=== PATIENT | female | born 2000 | race American Indian/Alaskan Native ===

== ENCOUNTER 2020-12-05 22:06 | Emergency (ER) | payer OTHER, SELFPAY ==
[2020-12-05 22:34] VITALS: BP 98/57
[2020-12-05] MEDS ORDERED: ONDANSETRON 4 MG ODT TAB PO ONE (23:44)
[2020-12-05] MEDS ORDERED: ACETAMINOPHEN 500 MG TAB PO ONE (23:44)
--- NOTE | 2020-12-06 02:25 | XRay Report ---
CHEST 1 VIEW 12/06/2020 1:07 AM INDICATION / CLINICAL INFORMATION: cough. Covid positive COMPARISON: None available. FINDINGS: SUPPORT DEVICES: None. HEART / MEDIASTINUM: No significant abnormality. LUNGS / PLEURA: No significant pulmonary or pleural abnormality. No pneumothorax. ADDITIONAL FINDINGS: There is metallic piercing projecting over the mid chest IMPRESSION: 1. No acute findings. Signer Name: Steve Rothman MD Signed: 12/06/2020 2:20 AM Workstation Name: [id number]
--- NOTE | 2020-12-06 04:05 | Emergency Department Report ---
ED General Adult HPI - General Chief complaint: Pain General Stated complaint: POS COVID/CHEST/ARM PAIN Source: patient, EMS Mode of arrival: Ambulatory Limitations: No Limitations - History of Present Illness Initial comments: Patient is a nulliparous 20-year-old -[place] female with a history of asthma who presents to the ED with complaint of persistent diffuse body aches and pains, nausea and vomiting, persistent dry cough, lack of appetite and nausea and vomiting for the last 2 days. Patient states that she was initially evaluated and tested positive for COVID-19 viral infection. Patient states that she has been taking [id number] medications with no relief. Patient states that she was unable to keep anything down in the last 4 hours and decided come to the ED for further evaluation. Patient denies dizziness, syncope, fever, chills, abdominal pain, diarrhea, dysuria, urinary frequency and urgency, sore throat, chest pain, shortness of breath, nasal and sinus congestion or back pain. MD Complaint: Body aches, persistent dry cough, nausea and vomiting -: days(s) (2) Location: chest, abdomen Radiation: non-radiation Severity scale (0 -10): 8 Quality: aching, sharp Consistency: constant Improves with: none Worsens with: none Associated Symptoms: denies other symptoms, cough, headaches, loss of appetite, nausea/vomiting, weakness. denies: confusion, chest pain, diaphoresis, fever/chills, malaise, rash, seizure, shortness of breath, syncope, other Treatments Prior to Arrival: NSAID - Related Data Allergies Allergy/AdvReac Type Severity Reaction Status Date / Time No Known Allergies Allergy Unverified 12/05/20 22:33 ED Review of Systems ROS: Stated complaint: POS COVID/CHEST/ARM PAIN Other details as noted in HPI Constitutional: malaise, weakness. denies: chills, fever Eyes: denies: eye pain, eye discharge, vision change ENT: denies: ear pain, throat pain, congestion Respiratory: cough. denies: shortness of breath, wheezing Cardiovascular: denies: chest pain, palpitations Endocrine: no symptoms reported Gastrointestinal: nausea, vomiting. denies: abdominal pain, diarrhea Genitourinary: denies: urgency, dysuria, discharge Musculoskeletal: back pain, arthralgia, myalgia. denies: joint swelling Skin: denies: rash, lesions Neurological: headache. denies: weakness, paresthesias Psychiatric: denies: anxiety, depression Hematological/Lymphatic: denies: easy bleeding, easy bruising ED Past Medical Hx - Past Medical History Previous Medical History?: Yes Hx Asthma: Yes - Surgical History Past Surgical History?: No - Social History Smoking Status: Never Smoker Substance Use Type: None ED Physical Exam - General Limitations: No Limitations General appearance: alert, in no apparent distress - Head Head exam: Present: atraumatic, normocephalic, normal inspection - Eye Eye exam: Present: normal appearance, PERRL, EOMI Pupils: Present: normal accommodation - ENT ENT exam: Present: normal exam, normal orophraynx, mucous membranes moist, TM's normal bilaterally, normal external ear exam - Neck Neck exam: Present: normal inspection, full ROM - Respiratory Respiratory exam: Present: normal lung sounds bilaterally. Absent: respiratory distress, wheezes, rales, rhonchi, chest wall tenderness, accessory muscle use, decreased breath sounds, prolonged expiratory - Cardiovascular Cardiovascular Exam: Present: regular rate, normal rhythm, normal heart sounds. Absent: systolic murmur, diastolic murmur, rubs, gallop - GI/Abdominal GI/Abdominal exam: Present: soft, normal bowel sounds. Absent: tenderness, guarding, rebound, hyperactive bowel sounds, hypoactive bowel sounds, organomegaly - Extremities Exam Extremities exam: Present: normal inspection, full ROM, normal capillary refill - Back Exam Back exam: Present: normal inspection, full ROM. Absent: tenderness, CVA tenderness (R), CVA tenderness (L), muscle spasm, paraspinal tenderness, vertebral tenderness - Neurological Exam Neurological exam: Present: alert, oriented X3, CN II-XII intact, normal gait, reflexes normal - Psychiatric Psychiatric exam: Present: normal affect, normal mood, anxious - Skin Skin exam: Present: warm, dry, intact, normal color. Absent: rash ED Course Vital Signs 12/05/20 22:33 Temperature 98.5 F Pulse Rate 65 Respiratory 20 Rate Blood Pressure 98/57 O2 Sat by Pulse 99 Oximetry ED Medical Decision Making - Radiology Data Radiology results: report reviewed, image reviewed [facility] [address] [place] [address] XRay Report Signed Patient: DARRYN RAJPUT MR#: [id number] : 2000 Acct:[id number] Age/Sex: 20 / F ADM Date: 12/05/20 Loc: ED Attending Dr: Ordering Physician: KLAUS QUINN Date of Service: 12/05/20 Procedure(s): XR chest 1V ap Accession Number(s): [id number] cc: KLAUS QUINN Fluoro Time In Minutes: CHEST 1 VIEW 12/06/2020 1:07 AM INDICATION / CLINICAL INFORMATION: cough. Covid positive COMPARISON: None available. FINDINGS: SUPPORT DEVICES: None. HEART / MEDIASTINUM: No significant abnormality. LUNGS / PLEURA: No significant pulmonary or pleural abnormality. No pneumothorax. ADDITIONAL FINDINGS: There is metallic piercing projecting over the mid chest IMPRESSION: 1. No acute findings. Signer Name: Steve Rothman MD Signed: 12/06/2020 2:20 AM Workstation Name: [id number] Transcribed By: SS Dictated By: Steve Rothman MD Electronically Authenticated By: Steve Rothman MD Signed Date/Time: 12/06/20219 DD/ 8 TD/TT: - Medical Decision Making This is a nulliparous 20-year-old -[place] female with a history of asthma who presents to the ED with complaint of persistent diffuse body aches and pains, nausea and vomiting, persistent dry cough, lack of appetite and [place] and vomiting for the last 2 days. Patient states that she was initially evaluated and tested positive for COVID-19 viral infection. Patient states that she has been taking [id number] medications with no relief. Patient states that she was unable to keep anything down in the last 4 hours and decided come to the ED for further evaluation. In the ED, patient is alert and oriented x3 and is not in distress. Patient was treated in the ED with antiemetics and pain medications. Chest x-ray showed no acute cardiopulmonary abnormalities or pneumonitis. Patient left the ED AGAINST MEDICAL ADVICE prior to being reevaluated. - Differential Diagnosis COVID-19; URI; bronchitis; pneumonia; dehydration; UTI Critical care attestation.: If time is entered above; I have spent that time in minutes in the direct care of this critically ill patient, excluding procedure time. ED Disposition Clinical Impression: COVID-19 virus infection, Acute upper respiratory infection, Nausea and vomiting in adult patient, Acute bronchitis due to 2019-nCoV Disposition: DC-07 LEFT AGAINST MED ADVICE Is pt being admited?: No Does the pt Need Aspirin: No Condition: Undetermined Instructions: Acute Bronchitis (ED), COVID-19 Frequently Asked Questions, Cough, Adult, [id number], Nausea and Vomiting, Adult, [id number], COVID-19: How to Protect Yourself and Others - CDC, Upper Respiratory Infection, Adult, [id number] Additional Instructions: The chest x-ray showed no acute cardiopulmonary abnormalities or pneumonitis. Therefore take medications that were previously prescribed with food, drink plenty of fluids and follow-up with your primary care physician upon completion of your self quarantine. Return to the ED immediately if symptoms get worse. Referrals: [facility] [Provider Group] - 3-5 Days Time of Disposition: 04:06 Print Language: CHADIAN
== END 2020-12-06 05:52 | disposition left against medical advice (07) ==
LOC: ED 22:06
DX: U07.1 COVID-19 (principal); J06.9 Acute upper respiratory infection, unspecified; J20.9 Acute bronchitis, unspecified; J45.909 Unspecified asthma, uncomplicated
CPT/HCPCS: 71045; 99283; Q0162